=== PATIENT | female | born 1940 | race Caucasian/White ===

== ENCOUNTER 2016-09-01 16:54 | Outpatient (CLI) | payer MEDICARE, OTHER ==
[2016-09-01 17:42] LABS: HEMATOCRIT 24.4 % (36.0-47.0); HGB HCT DIFFERENCE -3.4; MEAN CORPUSCULAR HGB CONC 28.5 g/dL (32.0-36.0); RED BLOOD COUNT 4.36 10^6/uL (3.72-5.28); RED CELL DISTRIBUTION WIDTH 21.8 % (11.5-14.0); WHITE BLOOD COUNT 12.3 10^3/uL (4.0-10.5)
[2016-09-01 18:18] LABS: MEAN CORPUSCULAR VOLUME 56 fl (80-97)
[2016-09-01 23:21] VITALS: BP 162/63
[2016-09-02 15:04] LABS: PATH REVIEW PATHOLOGIST REVIEWED
== END 2016-09-01 23:45 | disposition home or self-care (01) ==
LOC: II 16:54 → 2N 17:04 → II 23:45
PROVIDERS: ATTEND Internal Medicine
PROC: 30233N1 Transfusion of Nonautologous Red Blood Cells into Peripheral Vein, Percutaneous Approach (ICD-10-PCS; principal; 2016-09-01)
DX: D64.9 Anemia, unspecified (principal)
CPT/HCPCS: 86900; 86901; 36415; 36430; 86850; 86920; P9016

== ENCOUNTER 2016-09-13 15:33 | Emergency (ER) | payer MEDICARE, OTHER ==
[2016-09-13 17:05] LABS: APPEARANCE,URINE CLEAR; BILIRUBIN,URINE NEGATIVE (NEGATIVE); GLUCOSE, URINE NEGATIVE (NEGATIVE); KETONES,URINE NEGATIVE (NEGATIVE); LEUKOCYTE ESTERASE,URINE NEGATIVE (NEGATIVE); NITRITE,URINE NEGATIVE (NEGATIVE); PROTEIN,URINE NEGATIVE (NEGATIVE); URINE SPECIFIC GRAVITY 1.018; UROBILINOGEN,URINE NEGATIVE mg/dL (<2.0)
[2016-09-13 17:44] LABS: ABSOLUTE BASOPHILS # (AUTO) 0.1 10^3/uL (0.0-0.2); ABSOLUTE EOSINOPHILS # (AUTO) 0.2 10^3/uL (0.0-0.6); ABSOLUTE LYMPHOCYTES (AUTO) 2.3 10^3/uL (0.5-4.7); ABSOLUTE MONOCYTES (AUTO) 0.8 10^3/uL (0.1-1.4); ABSOLUTE NEUT (AUTO) 8.2 10^3/uL (1.7-8.2); BASOPHILS % (AUTO) 0.9 % (0-2); EOSINOPHILS % (AUTO) 1.6 % (0-6); HEMATOCRIT 33.7 % (36.0-47.0); HEMOGLOBIN 9.8 g/dL (12.0-15.5); LYMPHOCYTES % (AUTO) 20.1 % (13-45); MEAN CORPUSCULAR HEMOGLOBIN 18.5 pg (27.0-33.4); MONOCYTES % (AUTO) 6.5 % (3-13); RED BLOOD COUNT 5.28 10^6/uL (3.72-5.28); SEGMENTED NEUTROPHILS % (AUTO) 70.9 % (42-78); WHITE BLOOD COUNT 11.6 10^3/uL (4.0-10.5)
[2016-09-13 17:47] LABS: ALANINE AMINOTRANSFERASE 29 U/L (9-52); ALBUMIN 4.2 g/dL (3.5-5.0); ALKALINE PHOSPHATASE 57 U/L (38-126); ANION GAP 8 (5-19); ASPARTATE AMINO TRANSFERASE 19 U/L (14-36); BILIRUBIN,DIRECT 0.3 mg/dL (0.0-0.4); BILIRUBIN,TOTAL 0.5 mg/dL (0.2-1.3); BLOOD UREA NITROGEN 19 mg/dL (7-20); CALCIUM 9.3 mg/dL (8.4-10.2); CARBON DIOXIDE 27 mmol/L (22-30); CHLORIDE 107 mmol/L (98-107); CREATININE RESULT 0.96 mg/dL (0.52-1.25); GLUCOSE 97 mg/dL (75-110); POTASSIUM 4.9 mmol/L (3.6-5.0); SODIUM 142.1 mmol/L (137-145); TOTAL PROTEIN 7.2 g/dL (6.3-8.2)
[2016-09-13 17:52] LABS: HGB HCT DIFFERENCE -4.3
[2016-09-13 17:56] LABS: OVALOCYTES 1+; POIKILOCYTOSIS 2+; POLYCHROMASIA SLIGHT; TEAR DROP CELLS 1+
[2016-09-13 17:57] LABS: HYPOCHROMASIA 2+; MICROCYTOSIS 3+
[2016-09-13 18:00] LABS: MEAN CORPUSCULAR VOLUME 64 fl (80-97)
--- NOTE | 2016-09-13 18:06 | RADIOLOGY REPORT (SQ) ---
EXAM DESCRIPTION: CT LTD RENAL STONE PROTOCOL ON COMPLETED DATE/TIME: 09/13/2016 5:02 pm REASON FOR STUDY: right flank pain COMPARISON: None. TECHNIQUE: CT scan of the abdomen and pelvis performed without intravenous or oral contrast. Images reviewed with lung, soft tissue, and bone windows. Reconstructed coronal and sagittal MPR images revi ewed. All images stored on PACS. All CT scanners at this facility use dose modulation, iterative reconstruction, and/or weight based d osing when appropriate to reduce radiation dose to as low as reasonably achievable (ALARA). [facility]: Dose Right [facility]: CareDose [facility]: Dose Right [facility]: Teradose 4D [facility]: Smart ACTON RADIATION DOSE: Up-to-date CT equipment and radiation dose reduction techniques were employed. CTDIv ol: 6.7 mGy. DLP: 342 mGy-cm.mGy. LIMITATIONS: None. FINDINGS: LOWER CHEST: No significant findings. No nodules or infiltrates. NON-CONTRASTED LIVER, SPLEEN, ADRENALS: Evaluation limited by lack of IV contrast. No identified sign ificant masses. PANCREAS: No masses. No peripancreatic inflammatory changes. GALLBLADDER: No identified stones by CT criteria. No inflammatory changes to suggest cholecystitis. RIGHT KIDNEY AND URETER: No suspicious masses. Assessment limited by lack of IV contrast. No signif icant calcifications. No hydronephrosis or hydroureter. LEFT KIDNEY AND URETER: No suspicious masses. Assessment limited by lack of IV contrast. Small pare nchymal calcifications. No hydronephrosis or hydroureter. AORTA AND RETROPERITONEUM: No aneurysm. No retroperitoneal masses or adenopathy. BOWEL AND PERITONEAL CAVITY: Mild pericecal inflammatory changes. No evidence of obstruction. No fr ee fluid. APPENDIX: Not identified PELVIS, BLADDER, AND ABDOMINAL WALL:Prior hysterectomy. No free fluid. Bladder normal. BONES: No significant findings. OTHER: No other significant finding. IMPRESSION: Mild pericecal inflammatory changes. Appendix is not identified. TECHNICAL DOCUMENTATION: JOB ID: [id number] Quality ID # [id number]: Final reports with documentation of one or more dose reduction techniques (e.g., Au tomated exposure control, adjustment of the mA and/or kV according to patient size, use of iterative reconstruction technique) 2010 [employer]- All Rights Reserved
--- NOTE | 2016-09-13 18:54 | ER Document Report ---
ED General - General Chief Complaint: Flank Pain Stated Complaint: FLANK PAIN Time Seen by Provider: 09/13/16 16:30 Mode of Arrival: Ambulatory Information source: Patient Notes: 76-year-old female with a remote history of a kidney stone 30 years ago, otherwise no medical problems, presents to the emergency room with significant right flank pain, diaphoresis, and diarrhea. The patient states that the pain resolved. She states that last night she did have a right back ache she was wondering whether she might be getting a kidney stone again. The only other significant medical history is that recently on a routine lab work she was diagnosed with anemia requiring 2 units of packed red blood cells. Patient states that her primary care physician (Dr. Whitney) felt that maybe it was from iron deficiency anemia. The patient does have an outpatient colonoscopy planned for the next few weeks. Review of systems: Patient is asymptomatic at this time. She is hungry. She denies any recent fever, chills. TRAVEL OUTSIDE OF THE [place] IN LAST 30 DAYS: No - HPI Onset: Just prior to arrival Onset/Duration: Sudden Quality of pain: No pain Severity: None Pain Level: Denies Associated symptoms: denies: Fever, Shortness of breath Exacerbated by: Denies Relieved by: Denies Similar symptoms previously: Yes Recently seen / treated by doctor: Yes - Related Data Allergies/Adverse Reactions: morphine Allergy (Intermediate, Verified 09/01/16 18:14) Hives Sulfa (Sulfonamide Antibiotics) Allergy (Intermediate, Verified 09/01/16 18:14) Hives Past Medical History - General Information source: Patient - Social History Smoking Status: Never Smoker Cigarette use (# per day): No Chew tobacco use (# tins/day): No Frequency of alcohol use: None Drug Abuse: None Lives with: Family Family History: None Patient has suicidal ideation: No Patient has homicidal ideation: No - Medical History Medical History: Negative Renal/ Medical History: Reports: Hx Kidney Stones. Denies: Hx Peritoneal Dialysis Surgical Hx: Negative Review of Systems - Review of Systems Constitutional: denies: Chills, Fever EENT: No symptoms reported Cardiovascular: No symptoms reported Respiratory: No symptoms reported Gastrointestinal: See HPI Genitourinary: See HPI Female Genitourinary: No symptoms reported Musculoskeletal: No symptoms reported Skin: No symptoms reported Hematologic/Lymphatic: No symptoms reported Neurological/Psychological: No symptoms reported Physical Exam - Vital signs Vitals: Temp Pulse Resp BP Pulse Ox 98.2 F 88 18 180/56 H 98 09/13/16 15:52 09/13/16 15:52 09/13/16 15:52 09/13/16 15:52 09/13/16 15:52 Notes: Physical exam: GENERAL: 6-year-old female, alert and oriented 3, no acute distress HEAD: Atraumatic, normocephalic. EYES: Pupils equal round and reactive to light, extraocular movements intact, sclera anicteric, conjunctiva are normal. ENT: TMs normal, nares patent, oropharynx clear without exudates. Moist mucous membranes. NECK: Normal range of motion, supple without lymphadenopathy or JVD. LUNGS: Breath sounds clear to auscultation bilaterally and equal. No wheezes rales or rhonchi. HEART: Regular rate and rhythm without murmurs, rubs or gallops. ABDOMEN: Soft, normoactive bowel sounds. No tenderness to palpation. No guarding, no rebound. No masses appreciated. EXTREMITIES: Normal range of motion, no pitting or edema. No clubbing or cyanosis. NEUROLOGICAL: Cranial nerves II through XII grossly intact. Normal speech, normal gait. PSYCH: Normal mood, normal affect. SKIN: Warm, Dry, normal turgor, no rashes or lesions noted. At ultrasound: No hydronephrosis, gallbladder without stones, normal gallbladder wall, no gallbladder distention or pericholecystic fluid, gallbladder not tender, aorta disease from the celiac trunk to the bifurcation shows no obvious aneurysm or dissection Course - Re-evaluation Re-evalutation: 09/13/16 19:03 Note: I did review the results of the CT scan with the patient. She thinks she had her appendix out during the time of her hysterectomy. She is currently sitting up in the stretcher, asymptomatic and states she wants to go any. She looks great. I have given her instructions to follow-up with her primary care doctor. - Vital Signs Vital signs: Temp Pulse Resp BP Pulse Ox 98.2 F 88 18 180/56 H 98 09/13/16 15:52 09/13/16 15:52 09/13/16 15:52 09/13/16 15:52 09/13/16 15:52 - Laboratory Result Diagrams: 09/13/16 17:10 09/13/16 17:10 Laboratory results interpreted by me: 09/13/16 09/13/16 09/13/16 16:10 17:10 17:10 WBC 11.6 H Hgb 9.8 L Hct 33.7 L MCV 64 L D MCH 18.5 L MCHC 29.0 L RDW 29.0 H Est GFR (Non-Af Amer) 56 L Urine Blood MODERATE H Urine Ascorbic Acid 20 H - Diagnostic Test Radiology reviewed: Image reviewed, Reports reviewed - If the abdomen shows no obvious stone. There is some small amount of inflammation in the cecum. Discharge - Discharge Clinical Impression: Flank pain Condition: Stable Disposition: HOME, SELF-CARE Additional Instructions: As we discussed, your labs look relatively good. There was some blood in the urine suggestive of small kidney stone. The CAT scan did not show a definitive stone. It does show some mild inflammation around the cecum and the appendix was not identified. It is possible that inflammation in this area could be caused by a recently passed kidney stone. It sounds like you have had your appendix taken out years ago so that would not be considered a problem at this point. Restrictions on activity. Drink plenty of fluids Return to the emergency room for any worsening pain, fever, blood in the urine or any concerns or getting worse. Following up with your primary care doctor: Bring a copy of today's lab work as well as CT report with you. Referrals: ANTONIO BEDOYA MD [Primary Care Provider] - Follow up in 3-5 days
[2016-09-13 19:53] VITALS: BP 180/56
== END 2016-09-13 19:00 | disposition home or self-care (01) ==
LOC: ER 15:33
DX: K37 Unspecified appendicitis (principal); R10.9 Unspecified abdominal pain; R61 Generalized hyperhidrosis; R19.7 Diarrhea, unspecified; Z87.442 Personal history of urinary calculi; Z98.890 Other specified postprocedural states; Z86.2 Personal history of diseases of the blood and blood-forming organs and certain disorders involving the immune mechanism; Z88.5 Allergy status to narcotic agent; Z88.2 Allergy status to sulfonamides; Z90.710 Acquired absence of both cervix and uterus
CPT/HCPCS: 36415; 76380; 80053; 81001; 85025; 99284